=== PATIENT | male | born 1980 | race Caucasian/White ===

== ENCOUNTER 2021-10-13 19:03 | Inpatient (IN) ==
[2021-10-13 19:58] LABS: Basophils # 0.1 K/mcL (0.0-0.2); Basophils % 0.9 %; Eosinophils # 0.1 K/mcL (0.0-0.6); Eosinophils % 0.9 %; Hematocrit 49.5 % (37.5-50.1); Hemoglobin 16.5 g/dL (12.9-16.9); Immature Granulocytes % 0.3 % (0-4); Lymphocytes # 1.7 K/mcL (0.6-4.6); Lymphocytes % 18.2 %; Mean Corpuscular HGB Conc 33.3 g/dL (31.6-35.5); Mean Platelet Volume 11.9 fL (9.4-12.4); Monocytes # 0.8 K/mcL (0.0-1.3); Monocytes % 8.2 %; Neutrophils # 6.6 K/mcL (1.6-8.9); Platelet Count 286 K/mcL (140-400); Red Blood Count 5.32 M/mcL (4.19-5.50); Red Cell Distribution Width 12.6 % (11.5-14.5); Segmented Neutrophils % 71.5 %; White Blood Count 9.3 K/mcL (4.3-11.1)
[2021-10-13 20:19] LABS: Acetaminophen < 10 mcg/mL (10-20); BUN/Creatinine Ratio 13 (6-26); Blood Urea Nitrogen 15 mg/dL (6-20); Calcium 9.9 mg/dL (8.6-10.3); Carbon Dioxide 28 mEq/L (23-29); Chloride 102 mEq/L (98-107); Chol/HDL Ratio 4.8 (0-4.9); Cholesterol 209 mg/dL (< 200); Ethanol < 10 mg/dL (Less than 10); Glucose 108 mg/dL (70-105); HDL Cholesterol 44 mg/dL (40-59); LDL Cholesterol,Calculated 125 mg/dL (< 100); Osmolality,Calculated 287 (280-300); Potassium 3.8 mEq/L (3.5-5.1); Salicylate < 2.5 mg/dL (15.0-30.0); Sodium 138 mEq/L (136-145); Triglycerides 199 mg/dL (< 150); eGFR For African Americans > 60 (> 60); eGFR For Non-African Americans > 60 (> 60)
[2021-10-13 20:20] LABS: Estimated Average Glucose 126 mg/dl
[2021-10-13 20:51] LABS: Amphetamine Screen,Urine Negative ng/mL (Cutoff=1000); Barbiturate Screen,Urine Negative ng/mL (Cutoff=200); Benzodiazepines Screen,Urine Negative ng/mL (Cutoff=200); Cannabinoid Screen,Urine Negative ng/mL (Cutoff = 50); Cocaine Screen,Urine Negative ng/mL (Cutoff= 300); Opiate Screen,Urine Negative ng/mL (Cutoff=300); Phencyclidine Screen,Urine Negative ng/mL (Cutoff=25)
[2021-10-13 20:53] LABS: Bacteria,Urine Few per hpf (None-Few); Bilirubin,Urine Negative (Negative); Blood,Urine Negative (Negative); Clarity,Urine Clear (Clear); Color,Urine Yellow (Yellow); Glucose,Urine (UA) Normal (Normal); Hyaline Casts,Urine Few per lpf (None Seen); Ketones,Urine Negative (Negative); Leukocyte Esterase,Urine Negative (Negative); Mucus,Urine Many per lpf (None-Few); Nitrite,Urine Negative (Negative); Protein,Urine 50 mg/dL (Neg-Trace); RBC,Urine 0-3 per hpf (0-3); Specific Gravity,Urine 1.027 (1.010-1.025); Sperm,Urine Present per hpf (None Seen)
[2021-10-14 00:07] LABS: Influenza A PCR Negative (Negative); Influenza B PCR Negative (Negative); Resp. Syncytial Virus PCR Negative (Negative)
[2021-10-14 00:10] LABS: SARS-CoV-2 by PCR (In House) Negative (Negative)
[2021-10-14] MEDS ORDERED: *HR* LORazepam 1 MG TABLET PO PRN (00:31)
[2021-10-14] MEDS ORDERED: Ibuprofen 400 MG TABLET PO PRN (00:31)
[2021-10-14] MEDS ORDERED: Haloperidol Lactate 5 MG/ML VIAL IM PRN (00:31)
[2021-10-14] MEDS ORDERED: *HR* LORazepam 2 MG/ML VIAL IM PRN (00:31)
[2021-10-14] MEDS ORDERED: haloperidoL 5 MG TABLET PO PRN (00:31)
[2021-10-14] MEDS ORDERED: Diclofenac Sodium (DR) 75 MG TABLET.DR PO PRN (00:36)
[2021-10-14] MEDS: Nicotine 21 MG PATCH.TD24 TD SCH ×2 (00:41→09:51)
[2021-10-14] MEDS ORDERED: methocarbamoL 500 MG TABLET PO PRN (00:47)
[2021-10-14] MEDS ORDERED: Gabapentin 300 MG CAPSULE PO SCH ×2 (01:00→12:00)
[2021-10-14] MEDS ORDERED: Gabapentin 300 MG CAPSULE PO ONE (01:00)
[2021-10-14] MEDS: hydrOXYzine pamoate 25 MG CAPSULE PO PRN ×2 (01:20→21:07)
[2021-10-14] MEDS: traZODone 50 MG TABLET PO PRN ×2 (01:20→21:07)
[2021-10-14] MEDS: Loratadine 10 MG TABLET PO SCH (09:49)
[2021-10-14] MEDS: Losartan/HCTZ 50-12.5 TABLET PO SCH (09:49)
[2021-10-14] MEDS: Gabapentin 300 MG CAPSULE PO SCH ×2 (09:51→21:07)
[2021-10-14] MEDS: BuPROPion XL (24 HR) 150 MG TABLET PO SCH (12:31)
[2021-10-14] MEDS ORDERED: Nicotine 2 MG GUM BC PRN (15:10)
[2021-10-15] MEDS: Nicotine 21 MG PATCH.TD24 TD SCH (08:35)
[2021-10-15] MEDS: Gabapentin 300 MG CAPSULE PO SCH (08:37)
[2021-10-15] MEDS: Losartan/HCTZ 50-12.5 TABLET PO SCH (08:37)
[2021-10-15] MEDS: BuPROPion XL (24 HR) 150 MG TABLET PO SCH (08:37)
[2021-10-15] MEDS: Loratadine 10 MG TABLET PO SCH (08:37)
[2021-10-15 09:25] VITALS: BP 124/86; PULSE 102; TEMP 97.4; O2SAT 95
== END 2021-10-15 11:25 | disposition home or self-care (01) | DRG 885 ==
LOC: EMEROOARM 19:03 → 1ANU 10-14 00:28
PROVIDERS: ADMIT Psychiatry & Neurology Psychiatry; ATTEND Psychiatry & Neurology Psychiatry